=== PATIENT | male | born 1970 | race Two or more races ===

== ENCOUNTER 2018-08-15 17:23 | Emergency (ER) | payer MEDICAID, MEDICARE ==
[2018-08-15 17:36] VITALS: BP 134/56
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
--- NOTE | 2018-08-15 19:19 | RADIOLOGY REPORT (SQ) ---
EXAM DESCRIPTION: CT HEAD WITHOUT COMPLETED DATE/TIME: 08/15/2018 7:10 pm REASON FOR STUDY: head injury hx of subdural hematoma 2013 COMPARISON: None. TECHNIQUE: Axial images acquired through the brain without intravenous contrast. Images reviewed wi th bone, brain and subdural windows. Additional sagittal and coronal reconstructions were generated. Images stored on PACS. All CT scanners at this facility use dose modulation, iterative reconstruction, and/or weight based d osing when appropriate to reduce radiation dose to as low as reasonably achievable (ALARA). [facility]: Dose Right [facility]: CareDose [facility]: Dose Right [facility]: Teradose 4D [facility]: Smart Phurn[employer] Software RADIATION DOSE: CT Rad equipment meets quality standard of care and radiation dose reduction techniq ues were employed. CTDIvol: 53.2 mGy. DLP: 964 mGy-cm. mGy. LIMITATIONS: None. FINDINGS: VENTRICLES: Normal size and contour. CEREBRUM: No masses. No hemorrhage. No midline shift. No evidence for acute infarction. Normal gra y/white matter differentiation. No areas of low density in the white matter. CEREBELLUM: No masses. No hemorrhage. No alteration of density. No evidence for acute infarction. EXTRAAXIAL SPACES: No fluid collections. No masses. ORBITS AND GLOBE: No intra- or extraconal masses. Normal contour of globe without masses. CALVARIUM: No fracture. PARANASAL SINUSES: Marked mucosal thickening in the left maxillary sinus. SOFT TISSUES: No mass or hematoma. OTHER: No other significant finding. IMPRESSION: Left maxillary sinus disease with no acute intracranial imaging findings appear EVIDENCE OF ACUTE STROKE: NO. COMMENT: Quality ID # [id number]: Final reports with documentation of one or more dose reduction techniques (e.g., Automated exposure control, adjustment of the mA and/or kV according to patient size, use of iterative reconstruction technique) TECHNICAL DOCUMENTATION: JOB ID: [id number] [employer]- All Rights Reserved Reading location - IP/workstation name: [email or web address]
--- NOTE | 2018-08-15 22:36 | ER Document Report ---
ED General - General Chief Complaint: Head Injury Stated Complaint: HEAD PAIN Time Seen by Provider: 08/15/18 17:36 Primary Care Provider: SUMMER GEIGER MD [ACTIVE STAFF] - Follow up in 3-5 days (or your primary care. ) Mode of Arrival: Ambulatory Notes: Patient is a 47-year-old male with history of intracranial hemorrhage that presents to the emergency department for chief complaint of head injury, and scalp swelling. Patient reports that he had injured his head last Kiersten he was moving things, hit it on a piece of furniture and fell back and hit his head again. He initially had some mild headache, but did not notice any swelling, but his noted some swelling around where he had his bur hole, a few years ago when he had a subdural hematoma. Patient states he does not have any headache at this time, denies any pain, denies any numbness, weakness or tingling. Denies any blurred vision or changes in his vision. He only takes a baby aspirin, no other blood thinners. Past Medical History: Hypertension, hyperlipidemia, history of subdural Past Surgical History: Nasal surgery, bur hole Social History: Admits to smoking, denies alcohol or drug use. Family History: Reviewed and noncontributory for presenting illness Allergies: Reviewed, see documented allergy list. REVIEW OF SYSTEMS: Other than noted above, the 12 point review of systems was reviewed with the patient and were negative, all pertinent findings are included in the HPI. PHYSICAL EXAMINATION: Vital signs reviewed, nursing noted reviewed. GENERAL: Well-appearing, well-nourished and in no acute distress. HEAD: There is mild scalp swelling, of the posterior lateral aspect on the left side, where the patient had prior bur hole, no tenderness to palpation, no laceration. EYES: Eyes appear normal, extraocular movements intact, sclera anicteric, conjunctiva are normal. ENT: nares patent, oropharynx clear without exudates. Moist mucous membranes. NECK: Normal range of motion, supple without lymphadenopathy LUNGS: Breath sounds clear to auscultation bilaterally and equal. No wheezes rales or rhonchi. HEART: Regular rate and rhythm without murmurs ABDOMEN: Soft, nontender, normoactive bowel sounds. No rebound, guarding, or rigidity. No masses appreciated. EXTREMITIES: Nontender, good range of motion, no pitting or edema. NEUROLOGICAL: No focal neurological deficits. Moves all extremities spontaneously Motor and sensory grossly intact on exam. PSYCH: Normal mood, normal affect. SKIN: Warm, Dry, normal turgor, no rashes or lesions noted on exposed skin TRAVEL OUTSIDE OF THE [place] IN LAST 30 DAYS: No - Related Data Allergies/Adverse Reactions: No Known Allergies Allergy (Verified 08/15/18 17:26) Past Medical History - General Information source: Patient - Social History Smoking Status: Current Every Day Smoker Frequency of alcohol use: None Drug Abuse: None Family History: Reviewed & Not Pertinent Patient has suicidal ideation: No Patient has homicidal ideation: No - Past Medical History Cardiac Medical History: Reports: Hx Heart Attack, Hx Hypercholesterolemia, Hx Hypertension Renal/ Medical History: Denies: Hx Peritoneal Dialysis Psychiatric Medical History: Reports: Hx Depression Past Surgical History: Reports: Hx Cardiac Catheterization Physical Exam - Vital signs Vitals: Temp Pulse Resp BP Pulse Ox 98.3 F 84 18 134/56 H 96 08/15/18 17:28 08/15/18 17:28 08/15/18 17:28 08/15/18 17:28 08/15/18 17:28 Course - Re-evaluation Re-evalutation: \Patient seen and examined vital signs reviewed. Patient was evaluated and treated as appropriate for the patient's presenting symptoms and complaint, with consideration of any critical or life threatening conditions that may be associated with their obtained history and exam as noted above. Patient appears well, no complaints, pain, CT of the head was obtained and was negative for any acute intracranial injury The patient was re-evaluated and was stable Evaluation was most consistent with mild scalp swelling, closed head injury Plan of care was discussed with the patient at this point, after careful consideration I feel that that patient can be discharged from the emergency department, the patient was educated treatments and reasons to return to the emergency department based on their presumed diagnosis as noted above, they were advised to followup with a primary care physician in 2-3 days. Patient was agreeable to plan of care. *Note is created using voice recognition software and may contain spelling, syntax or grammatical errors. Head CT 08/15/18 17:37 IMPRESSION: Left maxillary sinus disease with no acute intracranial imaging findings appear EVIDENCE OF ACUTE STROKE: NO. - Vital Signs Vital signs: Temp Pulse Resp BP Pulse Ox 98.3 F 84 18 134/56 H 96 08/15/18 17:28 08/15/18 17:28 08/15/18 17:28 08/15/18 17:28 08/15/18 17:28 Discharge - Discharge Clinical Impression: Closed head injury Qualifiers: Encounter type: initial encounter Qualified Code(s): S09.90XA - Unspecified injury of head, initial encounter Condition: Stable Disposition: HOME, SELF-CARE Instructions: Head Injury Precautions ([facility]) Referrals: SUMMER GEIGER MD [ACTIVE STAFF] - Follow up in 3-5 days (or your primary care. )
== END 2018-08-15 23:10 | disposition home or self-care (01) ==
LOC: ER 17:23
DX: S09.90XA Unspecified injury of head, initial encounter (principal); R51 Headache; R22.0 Localized swelling, mass and lump, head; X58.XXXA Exposure to other specified factors, initial encounter; F17.200 Nicotine dependence, unspecified, uncomplicated; I10 Essential (primary) hypertension
CPT/HCPCS: 70450; 99283

== ENCOUNTER 2018-11-03 18:53 | Emergency (ER) | payer MEDICARE ==
[2018-11-03 19:02] VITALS: BP 130/72
[2018-11-03] MEDS ORDERED: IBUPROFEN 800 MG TABLET PO ONE (21:38)
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
--- NOTE | 2018-11-03 22:19 | RADIOLOGY REPORT (SQ) ---
2 VIEWS OF RIGHT LEG EXAM DATE: 11/03/2018 9:37 PM CDT HISTORY: Pain s/p injury. COMPARISON: None. FINDINGS: No acute fracture or dislocation is seen. The joint spaces are preserved. The soft tissues are mildly swollen. No radiopaque foreign body. IMPRESSION: No acute fracture or foreign body.
--- NOTE | 2018-11-03 22:20 | RADIOLOGY REPORT (SQ) ---
EXAM DESCRIPTION: Left humerus RadLex: XR HUMERUS Views: 2 CLINICAL HISTORY: 48 years Male, pain s/p injury COMPARISON: None. FINDINGS: Negative for acute fracture, dislocation, or radiopaque foreign body. No soft tissue air. No lytic bone changes or periosteal reaction. IMPRESSION: 1. No acute findings.
== END 2018-11-04 00:50 | disposition home or self-care (01) ==
LOC: ER 18:53
DX: M79.661 Pain in right lower leg (principal); M79.622 Pain in left upper arm; M79.89 Other specified soft tissue disorders; I10 Essential (primary) hypertension
CPT/HCPCS: 99283